=== PATIENT | female | born 1975 | race Caucasian/White ===

== ENCOUNTER 2019-12-18 08:59 | Emergency (ER) | payer BC, SELFPAY ==
[2019-12-18 09:06] VITALS: BP 112/70; PULSE 72; RESP 16; TEMP 37.1; O2SAT 99
--- NOTE | 2019-12-18 09:07 | ED.GENADULT ---
HPI - General Adult General Chief complaint: Eye Problems Stated complaint: pink eye Time Seen by Provider: 12/18/19 09:13 Source: patient Mode of arrival: ambulatory Limitations: no limitations History of Present Illness HPI narrative: 44-year-old female patient presents to the [facility] with complaints of bilateral eye redness and irritation that started yesterday. Patient states yesterday was mostly the right eye and this morning woke up with a little bit of matting to the right eye and states now she started to see some redness and irritation to the left eye. Patient denies taking anything for her symptoms. Denies any vision changes. Denies any pain. Denies any trauma to the eye that she is aware of. Patient does wear glasses but denies wearing contacts. Related Data Home Medications Medication Instructions Recorded Confirmed sertraline 50 mg PO DAILY 12/18/19 12/18/19 Allergies Allergy/AdvReac Type Severity Reaction Status Date / Time No Known Drug Allergies Allergy Unknown Other Verified 12/18/19 09:13 Review of Systems Review of Systems: Narrative: CONSTITUTIONAL: Denies fever, chills, or sweats. EYES: Denies visual changes, positive bilateral eye redness, positive discharge from right eye. ENT: Denies rhinorrhea, congestion, sore throat, or otalgia. CARDIOVASCULAR: Denies chest pain, palpitations, or edema. RESPIRATORY: Denies cough or dyspnea. GASTROINTESTINAL: Denies abdominal pain, nausea, vomiting, or diarrhea. GENITOURINARY: Denies dysuria or hematuria. SKIN: Denies rash or itching. MUSCULOSKELETAL: Denies back pain, joint pain, or myalgia. NEUROLOGIC: Denies headache, numbness, or weakness. PSYCHIATRIC: Denies anxiety or depression. PMFSH Comments At the time of my signature I agree with nursing past medical history, surgical, social, and family history. There is no relevant family history pertinent to the presenting complaint. Exam Narrative: Exam Narrative: GENERAL: Well-appearing, well-nourished, and in no acute distress. HEAD: Normocephalic, atraumatic. EYES: PERRLA and EOM intact without limitation or complaint of pain, no periorbital soft tissue swelling ,no erythema, warmth or tenderness noted, no obvious deformity. No crusting or swelling.no tearing or draining.No photophobia. No nystagmus No FB or lesion on lid eversion. Corneas grossly clear, no obvious FB or hyphens/hypopyon. injection to sclera and swelling of the conjunctive are noted. Lids and lashes clear. ENT: Nares clear, no rhinorrhea or epistaxis. Mucous membranes moist. Bilateral TMs are clear no erythema or foreign bodies in the canal. Posterior pharynx no erythema, tonsillectomy, exudates or lesions present. NECK: Supple. No lymphadenopathy CHEST: Clear to auscultation. No respiratory distress. HEART: Regular rate and rhythm. No murmur heard. Normal peripheral pulses. ABDOMEN: Soft, nontender, nondistended, normal active bowel sounds. EXTREMITIES: Normal range of motion. No edema. SKIN: Warm, dry, no rash. NEURO: No focal deficits. Alert and oriented x3. Course Vital Signs Vital signs: Vital Signs Temperature 37.1 C 12/18/19 09:06 Pulse Rate 72 12/18/19 09:06 Respiratory Rate 16 12/18/19 09:06 Blood Pressure 112/70 12/18/19 09:06 Pulse Oximetry 99 12/18/19 09:06 Temperature 37.1 C 12/18/19 09:06 Pulse Rate 72 12/18/19 09:06 Respiratory Rate 16 12/18/19 09:06 Blood Pressure 112/70 12/18/19 09:06 Pulse Oximetry 99 12/18/19 09:06 Vital signs reviewed. Medical Decision Making Differential Diagnosis Differential Diagnosis: Differential diagnosis: Conjunctivitis, foreign body, corneal ulcer, Keratitis, dendritic lesions, corneal abrasion, very orbital infection, orbital cellulitis, orbital pain, acute narrow angle glaucoma, detached retina, central retinal artery occlusion, complete hyphema, vitreous hemorrhage, optic neuritis, globe disruption Discussed with patient I do believe this is
== END 2019-12-18 09:24 | disposition home or self-care (01) ==
PROVIDERS: Emergency Provider Nurse Practitioner Family; PCP Internal Medicine
DX: B30.9 Viral conjunctivitis, unspecified (principal); F41.9 Anxiety disorder, unspecified
CPT/HCPCS: 99203; G0463